=== PATIENT | female | born 1935 | race Hispanic/Latino ===

== ENCOUNTER 2023-10-25 18:46 | Inpatient (IN) | payer OTHER, MEDICAID ==
[2023-10-25 21:33] LABS: Critical Call Chem Troponin I NUR.CIS@2133; Troponin I 3.421 ng/mL (< 0.028)
[2023-10-25 22:04] VITALS: BMI 37.5
[2023-10-25] MEDS: Enoxaparin 100 MG (1 mL) SYRINGE SC SCH (22:08)
[2023-10-25] MEDS: Nitroglycerin 2% Ointment 1 INCH/1 GM Packet TOP SCH (22:22)
[2023-10-25] MEDS ORDERED: Morphine 2 MG/ML VIAL SLOW IVP PRN (23:14)
[2023-10-25] MEDS ORDERED: Nitroglycerin 0.4 MG TAB (25 Tab Bottle) SL PRN (23:14)
[2023-10-25] MEDS ORDERED: Enoxaparin 80 MG (0.8 mL) SYRINGE SC SCH (23:15)
[2023-10-25] MEDS ORDERED: Ondansetron PF 4 MG/2 ML Vial IVP PRN (23:22)
[2023-10-25] MEDS ORDERED: Glucagon 1 MG/ML KIT IM PRN (23:22)
[2023-10-25] MEDS ORDERED: Dextrose 5% in Water 1,000 ML IV PRN (23:22)
[2023-10-25] MEDS ORDERED: Senokot S 8.6-50 MG TAB PO PRN (23:22)
[2023-10-25] MEDS ORDERED: Dextrose 50% Abboject 50 ML SYRINGE SLOW IVP PRN (23:22)
[2023-10-25] MEDS ORDERED: Calcium Carbonate 500 MG ChewTAB PO PRN (23:22)
[2023-10-25] MEDS: Atorvastatin Calcium 40 MG TAB PO SCH (23:38)
[2023-10-26 00:17] LABS: INR-International Normal Ratio 1.1; PTT 33.7 sec (22.0-33.0); Prothrombin Time 11.4 sec (9.5-12.1)
[2023-10-26 00:20] LABS: Magnesium 1.3 mg/dL (1.6-2.6)
[2023-10-26 01:11] LABS: Critical Call Chem Troponin I @NOTIFIED NUR.CIS; Troponin I 10.283 ng/mL (< 0.028)
[2023-10-26] MEDS: Magnesium 2 GM/50 ML(in water) 2 GM in Premix 1 BAG IVPB SCH (01:51)
[2023-10-26 03:48] LABS: #Eosinphils 0.2 10x3/uL (0.0-0.5); #Monocytes 0.5 10x3/uL (0.0-1.1); #Neutrophils 3.6 10x3/uL (1.5-8.4); %Basophils 0.4 % (0.0-2.0); %Eosinophils 2.3 % (0.0-6.0); %Lymphocytes 38.8 % (18.0-47.0); %Monocytes 7.7 % (0.0-10.0); %Neutrophils 50.7 % (40.0-75.0); Hematocrit 36.1 % (34.9-44.5); Hemoglobin 12.3 g/dL (12.0-15.5); Mean Corpuscular HGB CONC 34.1 g/dL (32.0-36.0); Mean Corpuscular Hemoglobin 31.8 pg (27.0-33.0); Mean Corpuscular Volume 93.3 fl (81.6-98.3); Mean Platelet Volume 10.5 fl (7.4-10.4); Platelet Count 228 10x3/uL (150-450); RBC Distribution Width 13.9 % (11.5-14.5); Red Blood Cell (RBC) Count 3.87 10x6/uL (3.90-5.03)
[2023-10-26 03:52] LABS: Anion Gap 10 mmol/L (10-20); BUN (Urea Nitrogen) 17 mg/dL (9.8-20.1); Calc. Creatinine Clearance 84 mL/min (70-130); Calcium 9.5 mg/dL (7.8-10.44); Carbon Dioxide 25 mmol/L (23-31); Chloride 106 mmol/L (98-107); Estimated GFR 85; Glucose 117 mg/dL (83-110); Potassium 3.8 mmol/L (3.5-5.1); Sodium 137 mmol/L (136-145)
[2023-10-26 04:19] LABS: Cholesterol 185 mg/dl (< 200 Desired); HDL Cholesterol 46 mg/dL (>60 Neg Risk); LDL Cholesterol, Calculated 120 mg/dL; Triglycerides 95 mg/dL (Less than 150)
[2023-10-26] MEDS: Nitroglycerin 2% Ointment 1 INCH/1 GM Packet TOP SCH (05:45)
[2023-10-26] MEDS ORDERED: FLU VACC QS2023(65UP)/MF59C/PF 60 MCG/0.5 ML SYRINGE IM ONE (09:00)
[2023-10-26] MEDS: Aspirin 81 mg Enteric Coated Tablet PO SCH (09:12)
[2023-10-26] MEDS: Fish Oil 1,000 MG CAP PO SCH (09:12)
[2023-10-26] MEDS: Losartan 50 MG TAB PO SCH (09:13)
[2023-10-26] MEDS: Cyanocobalamin (Vitamin B-12) 1,000 MCG TAB PO SCH (09:13)
[2023-10-26] MEDS: Enoxaparin 100 MG (1 mL) SYRINGE SC SCH (09:14)
[2023-10-26] MEDS: Metoprolol Tartrate 25 MG TAB PO SCH ×2 (14:41→21:24)
[2023-10-26 14:51] LABS: Hemoglobin A1c 5.2 % (4.0-6.0)
[2023-10-26] MEDS ORDERED: CATH FS SCH (15:00)
[2023-10-26] MEDS: Sodium Chloride 0.9% 1,000 ML IV SCH (16:18)
[2023-10-26] MEDS: Atorvastatin Calcium 40 MG TAB PO SCH (21:24)
[2023-10-27] MEDS ORDERED: Nitroglycerin 50 MG/250 ML BOT 0 ML ONE (06:44)
[2023-10-27] MEDS ORDERED: Lidocaine 1% (PF) 30 ML VIAL ONE (06:45)
[2023-10-27] MEDS ORDERED: Heparin 10,000 UNITS/ 10 ML VIAL ONE (06:45)
[2023-10-27] MEDS: HYDROcodone/Acetaminophen 5/325 mg Tablet PO PRN (11:02)
[2023-10-27] MEDS ORDERED: Communication Order-Pharmacy FS SCH (18:15)
[2023-10-27] MEDS: Polyethylene Glycol 3350 17 GM Packet PO PRN (20:41)
[2023-10-27] MEDS: Benzonatate 100 MG CAP PO PRN (20:42)
[2023-10-28 05:14] LABS: #Eosinphils 0.2 10x3/uL (0.0-0.5); #Monocytes 0.9 10x3/uL (0.0-1.1); #Neutrophils 5.1 10x3/uL (1.5-8.4); %Basophils 0.2 % (0.0-2.0); %Eosinophils 1.7 % (0.0-6.0); %Lymphocytes 28.6 % (18.0-47.0); %Monocytes 10.3 % (0.0-10.0); Hematocrit 35.2 % (34.9-44.5); Hemoglobin 11.7 g/dL (12.0-15.5); Mean Corpuscular HGB CONC 33.2 g/dL (32.0-36.0); Mean Corpuscular Hemoglobin 30.7 pg (27.0-33.0); Mean Corpuscular Volume 92.4 fl (81.6-98.3); Mean Platelet Volume 10.7 fl (7.4-10.4); Platelet Count 187 10x3/uL (150-450); RBC Distribution Width 14.1 % (11.5-14.5); Red Blood Cell (RBC) Count 3.81 10x6/uL (3.90-5.03); White Blood Cell (WBC) Count 8.7 10x3/uL (3.5-10.5)
[2023-10-28 05:29] LABS: Anion Gap 10 mmol/L (10-20); BUN (Urea Nitrogen) 12 mg/dL (9.8-20.1); Calc. Creatinine Clearance 88 mL/min (70-130); Calcium 9.1 mg/dL (7.8-10.44); Carbon Dioxide 22 mmol/L (23-31); Chloride 107 mmol/L (98-107); Estimated GFR 86; Glucose 109 mg/dL (83-110); Potassium 3.9 mmol/L (3.5-5.1); Sodium 135 mmol/L (136-145)
[2023-10-28] MEDS ORDERED: Heparin 10,000 UNITS/ 10 ML VIAL ONE ×2 (06:52→09:12)
[2023-10-28] MEDS ORDERED: Lidocaine 1% (PF) 30 ML VIAL ONE (06:52)
[2023-10-28] MEDS ORDERED: Adenosine 6 mg (2 mL) VIAL ONE (06:52)
[2023-10-28] MEDS ORDERED: Nitroglycerin 50 MG/250 ML BOT 0 ML ONE (06:52)
[2023-10-28] MEDS ORDERED: Atropine Sulfate 1 mg/1 ml Vial ONE (06:58)
[2023-10-28] MEDS ORDERED: Midazolam HCl 2 mg/2 ml Vial ONE (07:04)
[2023-10-28] MEDS ORDERED: fentaNYL 50 mcg/mL 1 mL Vial ONE ×2 (07:04→09:07)
[2023-10-28] MEDS: Sodium Chloride 0.9% 1,000 ML IV SCH ×2 (07:25→14:16)
[2023-10-28] MEDS ORDERED: TICAGRELOR 90 MG TABLET ONE (09:02)
[2023-10-28] MEDS ORDERED: Protamine Sulfate 50 MG/5 ML VIAL ONE (09:30)
[2023-10-28] MEDS ORDERED: Iopamidol 300 61% 100 ML VIAL FS ONE (11:19)
[2023-10-28] MEDS: Ondansetron ODT 4 MG TAB PO PRN (12:48)
[2023-10-28 14:25] LABS: Uric Acid 2.1 mg/dL (2.6-6.0)
[2023-10-28] MEDS: HYDROcodone/Acetaminophen 5/325 mg Tablet PO PRN (17:45)
[2023-10-28] MEDS: HumaLOG 300 UNITS/3 ML VIAL SC PRN (18:26)
[2023-10-28] MEDS: Colchicine 0.6 MG TAB PO SCH ×2 (18:26→20:43)
[2023-10-28] MEDS: Famotidine 20 MG TAB PO SCH (20:43)
[2023-10-28] MEDS: TICAGRELOR 90 MG TABLET PO SCH (20:43)
[2023-10-29 05:46] LABS: #Basophils 0.02 10x3/uL (0.0-0.2); #Eosinphils 0.15 10x3/uL (0.0-0.5); %Basophils 0.2 % (0.0-2.0); %Eosinophils 1.7 % (0.0-6.0); %Lymphocytes 21.7 % (18.0-47.0); %Monocytes 11.5 % (0.0-10.0); %Neutrophils 64.7 % (40.0-75.0); Hematocrit 31.4 % (34.9-44.5); Hemoglobin 10.3 g/dL (12.0-15.5); Mean Corpuscular HGB CONC 32.8 g/dL (32.0-36.0); Mean Corpuscular Hemoglobin 30.9 pg (27.0-33.0); Mean Corpuscular Volume 94.3 fl (81.6-98.3); Mean Platelet Volume 10.9 fl (7.4-10.4); Platelet Count 185 10x3/uL (150-450); RBC Distribution Width 14.3 % (11.5-14.5); Red Blood Cell (RBC) Count 3.33 10x6/uL (3.90-5.03); White Blood Cell (WBC) Count 8.7 10x3/uL (3.5-10.5)
[2023-10-29 05:51] LABS: ALT (SGPT) 15 U/L (8-55); AST (SGOT) 34 U/L (5-34); Albumin 2.8 g/dL (3.4-4.8); Alkaline Phosphatase 78 U/L (40-110); Anion Gap 10 mmol/L (10-20); BUN (Urea Nitrogen) 14 mg/dL (9.8-20.1); Bilirubin, Total 0.6 mg/dL (0.2-1.2); Calc. Creatinine Clearance 77 mL/min (70-130); Calcium 8.8 mg/dL (7.8-10.44); Carbon Dioxide 21 mmol/L (23-31); Chloride 109 mmol/L (98-107); Estimated GFR 81; Globulin 2.8 g/dL (2.4-3.5); Glucose 109 mg/dL (83-110); Potassium 3.9 mmol/L (3.5-5.1); Protein, Total 5.6 g/dL (5.8-8.1); Sodium 136 mmol/L (136-145)
[2023-10-30 04:14] LABS: #Basophils 0.02 10x3/uL (0.0-0.2); #Eosinphils 0.22 10x3/uL (0.0-0.5); #Monocytes 0.61 10x3/uL (0.0-1.1); #Neutrophils 3.58 10x3/uL (1.5-8.4); %Basophils 0.3 % (0.0-2.0); %Eosinophils 3.7 % (0.0-6.0); %Monocytes 10.1 % (0.0-10.0); %Neutrophils 59.6 % (40.0-75.0); Hematocrit 33.8 % (34.9-44.5); Hemoglobin 11.1 g/dL (12.0-15.5); Mean Corpuscular HGB CONC 32.8 g/dL (32.0-36.0); Mean Corpuscular Hemoglobin 30.7 pg (27.0-33.0); Mean Corpuscular Volume 93.4 fl (81.6-98.3); Platelet Count 221 10x3/uL (150-450); RBC Distribution Width 14.5 % (11.5-14.5); Red Blood Cell (RBC) Count 3.62 10x6/uL (3.90-5.03)
[2023-10-30 04:27] LABS: Anion Gap 12 mmol/L (10-20); BUN (Urea Nitrogen) 13 mg/dL (9.8-20.1); Calc. Creatinine Clearance 91 mL/min (70-130); Calcium 8.6 mg/dL (7.8-10.44); Carbon Dioxide 18 mmol/L (23-31); Chloride 110 mmol/L (98-107); Estimated GFR 87; Glucose 115 mg/dL (83-110); Potassium 3.7 mmol/L (3.5-5.1); Sodium 136 mmol/L (136-145)
[2023-10-30 13:50] VITALS: BP 134/62; TEMP 97.7
== END 2023-10-30 15:05 | disposition home or self-care (01) | DRG 322 ==
LOC: CSHTELE 20:20 → OBSVTOIN 23:14
PROVIDERS: ADMIT Emergency Medicine; ATTEND Family Medicine
PROC: 4A023N7 Measurement of Cardiac Sampling and Pressure, Left Heart, Percutaneous Approach (ICD-10-PCS; principal; 2023-10-28)
PROC: 027034Z Dilation of Coronary Artery, One Artery with Drug-eluting Intraluminal Device, Percutaneous Approach (ICD-10-PCS; 2023-10-28)
PROC: B2111ZZ Fluoroscopy of Multiple Coronary Arteries using Low Osmolar Contrast (ICD-10-PCS; 2023-10-28)
PROC: B240ZZ3 Ultrasonography of Single Coronary Artery, Intravascular (ICD-10-PCS; 2023-10-28)
PROC: B2151ZZ Fluoroscopy of Left Heart using Low Osmolar Contrast (ICD-10-PCS; 2023-10-28)
DX: I21.4 Non-ST elevation (NSTEMI) myocardial infarction (principal); E11.9 Type 2 diabetes mellitus without complications; I10 Essential (primary) hypertension; E78.5 Hyperlipidemia, unspecified; E66.9 Obesity, unspecified; E03.9 Hypothyroidism, unspecified; M25.572 Pain in left ankle and joints of left foot; Z96.653 Presence of artificial knee joint, bilateral; I45.10 Unspecified right bundle-branch block; Z68.37 Body mass index [BMI] 37.0-37.9, adult; Z90.710 Acquired absence of both cervix and uterus; Z79.899 Other long term (current) drug therapy; Z98.890 Other specified postprocedural states; Z90.49 Acquired absence of other specified parts of digestive tract
CPT/HCPCS: 36415; 36416; 80048; 80053; 80061; 83036; 83735; 84443; 84484; 84550; 85025; 85347; 85610; 85730; 92928; 92978; 93005; 93010; 93458; 99152; 99153; C1726; C1753; C1760; C1769; C1874; C1887; C1894; C9600; J0153; J0461; J1644; J1650; J1815; J2001; J2250; J2720; J3010; J3475; J7050; Q0162; Q9967

== ENCOUNTER 2024-06-18 16:34 | Inpatient (IN) | payer OTHER, MEDICAID ==
[2024-06-18 17:35] LABS: #Basophils 0.03 10x3/uL (0.0-0.2); #Eosinophils 0.37 10x3/uL (0.0-0.5); #Monocytes 0.46 10x3/uL (0.0-1.1); #Neutrophils 3.37 10x3/uL (1.5-8.4); %Basophils 0.4 % (0.0-2.0); %Eosinophils 5.4 % (0.0-6.0); %Lymphocytes 37.7 % (18.0-47.0); %Monocytes 6.7 % (0.0-10.0); %Neutrophils 49.5 % (40.0-75.0); Hematocrit 35.8 % (34.9-44.5); Hemoglobin 11.5 g/dL (12.0-15.5); Mean Corpuscular HGB CONC 32.1 g/dL (32.0-36.0); Mean Corpuscular Hemoglobin 30.7 pg (27.0-33.0); Mean Corpuscular Volume 95.7 fL (81.6-98.3); Mean Platelet Volume 11.7 fL (7.4-10.4); Platelet Count 209 10x3/uL (150-450); RBC Distribution Width 15.2 % (11.5-14.5); Red Blood Cell (RBC) Count 3.74 10x6/uL (3.90-5.03); White Blood Cell (WBC) Count 6.8 10x3/uL (3.5-10.5)
[2024-06-18 17:46] LABS: INR-International Normal Ratio 1.1; PTT 26.7 sec (22.0-33.0); Prothrombin Time 11.8 sec (9.5-12.1)
[2024-06-18 18:01] LABS: Troponin I Less than 0.010 ng/mL (< 0.028)
[2024-06-18] MEDS ORDERED: Furosemide 40 MG (4 mL) VIAL ONE (18:28)
[2024-06-18 18:41] LABS: ALT (SGPT) 10 U/L (8-55); AST (SGOT) 15 U/L (5-34); Albumin 3.6 g/dL (3.4-4.8); Alkaline Phosphatase 88 U/L (40-110); Anion Gap 13 mmol/L (10-20); BUN (Urea Nitrogen) 16 mg/dL (9.8-20.1); Bilirubin, Total 0.6 mg/dL (0.2-1.2); Calc. Creatinine Clearance 0 mL/min (70-130); Calcium 10.2 mg/dL (7.8-10.44); Carbon Dioxide 24 mmol/L (23-31); Chloride 105 mmol/L (98-107); Estimated GFR 83; Globulin 3.3 g/dL (2.4-3.5); Glucose 124 mg/dL (83-110); Magnesium 1.2 mg/dL (1.6-2.6); Potassium 4.1 mmol/L (3.5-5.1); Protein, Total 6.9 g/dL (5.8-8.1); Sodium 138 mmol/L (136-145)
[2024-06-18 18:45] LABS: Bilirubin Neg (Negative); Blood, Urine 10 (Negative); Clarity Cloudy (Clear); Glucose, Urine (Dipstick) Normal (Negative); Ketone, Urine Negative (Negative); Leukocyte 500 (Negative); Nitrite Positive (Negative); Protein, Urine (Dipstick) 15 mg/dl (Neg-Trace); Specific Gravity, Urine 1.005 (1.005-1.030); Urobilinogen Normal mg/dL (Less than 2)
[2024-06-18 19:01] LABS: Bacteria/HPF 4+ HPF (None Seen)
[2024-06-18 19:02] LABS: CAUTI Indications for Culture Alt mental st,lethar; RBC/HPF 0-3 HPF (0-3); Squamous Epithelial 0-3 HPF (0-3)
[2024-06-18 19:03] LABS: Urine Culture Reflex Yes Yes
[2024-06-18] MEDS ORDERED: cefTRIAXone (ROCEPHIN) 1 GM VIAL ONE (20:00)
[2024-06-18] MEDS ORDERED: Magnesium 2 GM/50 ML BAG (IN WATER) ONE (20:00)
[2024-06-18] MEDS ORDERED: Calcium Carbonate 500 MG ChewTAB PO PRN (21:32)
[2024-06-18] MEDS ORDERED: Ondansetron PF 4 MG/2 ML Vial IVP PRN (21:32)
[2024-06-18] MEDS ORDERED: Senokot S 8.6-50 MG TAB PO PRN (21:32)
[2024-06-18] MEDS ORDERED: Guaifenesin DM 100-10/5 ML UDCUP PO PRN (21:32)
[2024-06-18] MEDS ORDERED: Acetaminophen 325 MG TAB PO PRN (21:32)
[2024-06-18 22:36] VITALS: BMI 34.7
[2024-06-18] MEDS: Pantoprazole DR 40 MG TAB PO SCH (23:15)
[2024-06-18] MEDS: Magnesium Oxide 400 MG TAB PO SCH (23:16)
[2024-06-18] MEDS: Lactated Ringer's 250 ML IV SCH (23:16)
[2024-06-18] MEDS: TICAGRELOR 90 MG TABLET PO SCH (23:16)
[2024-06-19 04:39] LABS: #Basophils 0.03 10x3/uL (0.0-0.2); #Eosinophils 0.29 10x3/uL (0.0-0.5); #Monocytes 0.53 10x3/uL (0.0-1.1); #Neutrophils 4.02 10x3/uL (1.5-8.4); %Basophils 0.4 % (0.0-2.0); %Eosinophils 4.1 % (0.0-6.0); %Lymphocytes 30.4 % (18.0-47.0); %Monocytes 7.5 % (0.0-10.0); %Neutrophils 57.3 % (40.0-75.0); Hemoglobin 11.4 g/dL (12.0-15.5); Mean Corpuscular HGB CONC 33.5 g/dL (32.0-36.0); Mean Corpuscular Hemoglobin 31.8 pg (27.0-33.0); Mean Corpuscular Volume 94.7 fL (81.6-98.3); Mean Platelet Volume 11.7 fL (7.4-10.4); Platelet Count 212 10x3/uL (150-450); Red Blood Cell (RBC) Count 3.59 10x6/uL (3.90-5.03)
[2024-06-19 04:54] LABS: Troponin I 0.029 ng/mL (< 0.028)
[2024-06-19 04:55] LABS: Anion Gap 12 mmol/L (10-20); BUN (Urea Nitrogen) 15 mg/dL (9.8-20.1); CK (CPK) 30 U/L (29-168); Calc. Creatinine Clearance 71 mL/min (70-130); Calcium 10.3 mg/dL (7.8-10.44); Carbon Dioxide 28 mmol/L (23-31); Chloride 104 mmol/L (98-107); Estimated GFR 81; Glucose 102 mg/dL (83-110); Magnesium 1.5 mg/dL (1.6-2.6); Sodium 140 mmol/L (136-145)
[2024-06-19] MEDS ORDERED: FLU (Fluad Triv) TS24-25 (65UP)/MF59C/PF 45 MCG/0.5 ML Syringe IM ONE (09:00)
[2024-06-19] MEDS ORDERED: Ezetimibe 10 MG TAB PO SCH (09:00)
[2024-06-19] MEDS ORDERED: Cyanocobalamin (Vitamin B-12) 1,000 MCG TAB PO SCH (09:00)
[2024-06-19] MEDS: Cyanocobalamin (Vitamin B-12) 1,000 MCG TAB PO SCH (09:09)
[2024-06-19] MEDS: Fish Oil 1,000 MG CAP PO SCH (09:09)
[2024-06-19] MEDS: metFORMIN 500 MG TAB PO SCH (09:09)
[2024-06-19] MEDS: Pantoprazole DR 40 MG TAB PO SCH (09:10)
[2024-06-19] MEDS: TICAGRELOR 90 MG TABLET PO SCH (09:10)
[2024-06-19] MEDS: Aspirin 81 mg Enteric Coated Tablet PO SCH (09:10)
[2024-06-19] MEDS: Fenofibrate 48 MG TAB PO SCH (09:10)
[2024-06-19] MEDS: Losartan 25 MG TAB PO SCH (09:10)
[2024-06-19] MEDS: Magnesium Oxide 400 MG TAB PO SCH (09:10)
[2024-06-19 10:39] VITALS: BMI 34.7
[2024-06-19] MEDS: Icosapent Ethyl 1 GM CAPSULE PO SCH (12:43)
[2024-06-19 14:33] LABS: Hemoglobin A1c 5.2 % (4.0-6.0)
[2024-06-19] MEDS: cefTRIAXone\\ROCEPHIN 1 GM in Sodium Chloride 0.9% 100 ML IVPB SCH (20:15)
[2024-06-19] MEDS: Enoxaparin 40 MG (0.4 mL) SYRINGE SC SCH (20:26)
[2024-06-19] MEDS: Atorvastatin Calcium 40 MG TAB PO SCH (20:26)
[2024-06-20 08:52] LABS: Anion Gap 13 mmol/L (10-20); BUN (Urea Nitrogen) 17 mg/dL (9.8-20.1); Calc. Creatinine Clearance 65 mL/min (70-130); Calcium 10.6 mg/dL (7.8-10.44); Carbon Dioxide 26 mmol/L (23-31); Chloride 103 mmol/L (98-107); Estimated GFR 73; Glucose 106 mg/dL (83-110); Magnesium 1.7 mg/dL (1.6-2.6); Potassium 3.9 mmol/L (3.5-5.1); Sodium 138 mmol/L (136-145)
[2024-06-21 04:00] VITALS: TEMP 98
[2024-06-21 09:56] VITALS: BP 104/46
== END 2024-06-21 11:39 | disposition home or self-care (01) | DRG 690 ==
LOC: CSHERS 16:34 → INTOOBSV 21:35 → CSHTELE 21:35 → OBSVTOIN 06-20 08:46
PROVIDERS: ADMIT Student in an Organized Health Care Education/Training Program; ATTEND Internal Medicine
DX: N39.0 Urinary tract infection, site not specified (principal); R00.1 Bradycardia, unspecified; I25.10 Atherosclerotic heart disease of native coronary artery without angina pectoris; E83.42 Hypomagnesemia; Z79.899 Other long term (current) drug therapy; E66.01 Morbid (severe) obesity due to excess calories; I10 Essential (primary) hypertension; E78.5 Hyperlipidemia, unspecified; Z68.34 Body mass index [BMI] 34.0-34.9, adult
CPT/HCPCS: 36415; 36416; 70450; 71045; 80048; 80053; 81001; 82550; 83036; 83735; 83880; 84443; 84484; 85025; 85610; 85730; 87086; 93005; 93010; J0696; J1650; J1940; J3475; J7120